=== PATIENT | female | born 1940 | race Caucasian/White ===

== ENCOUNTER 2017-09-08 18:11 | Emergency (ER) | payer MEDICARE ==
--- NOTE | 2017-09-08 19:28 | CT ---
CERVICAL SPINE CT NONCONTRAST 09/08/17 INDICATION: Posttraumatic neck pain, injury. FINDINGS: There is moderate multilevel degenerative changes of the cervical spine. There is grade I spondyloli sthesis at C3-4 and trace spondylolisthesis at C4-5. Prominent end plate sclerosis and disc space corwin rowing with marginal osteophyte formation is present at the C5-6 level. No craniocervical distraction injury is seen. IMPRESSION: Prominent degenerative changes cervical spine without an acute fracture evident. POS: [facility]
== END 2017-09-08 21:06 ==
LOC: MADERS 18:11
DX: S16.1XXA Strain of muscle, fascia and tendon at neck level, initial encounter (principal); W06.XXXA Fall from bed, initial encounter
CPT/HCPCS: 72125